=== PATIENT | female | born 1965 | race African-American/Black ===

== ENCOUNTER 2020-05-10 13:22 | Outpatient (CLI) | payer OTHER, SELFPAY ==
--- NOTE | ~2020-05-10 | MM_ITS ---
EXAMINATION: MM diagnostic davie LT w ynes HISTORY: Follow-up left breast calcifications TECHNIQUE: Additional 3-D tomosynthesis images of the left breast were performed and synthetic 2-D im ages were generated. CAD analysis was submitted and interpreted. COMPARISON: 03/17/2020 BREAST PARENCHYMAL COMPOSITION: The breasts are heterogenously dense, which may obscure small masses. FINDINGS: There is a cluster of nonspecific calcifications in the lower outer quadrant of the left br east. There is stable benign-appearing mass medially in the left breast. IMPRESSION: 1. Nonspecific clustered calcifications, lower outer quadrant. 2. Comparison to outside previous mammograms recommended. BI-RADS Category 0: Incomplete: Needs additional imaging evaluation. Reviewed, dictated and finalized at location A.
== END 2020-05-10 13:23 | disposition home or self-care (01) ==
LOC: ANHIMG 13:24
PROVIDERS: Visit Provider Internal Medicine Hematology & Oncology
DX: C50.911 Malignant neoplasm of unspecified site of right female breast (principal); Z17.1 Estrogen receptor negative status [ER-]; R92.8 Other abnormal and inconclusive findings on diagnostic imaging of breast
CPT/HCPCS: 77061; 77065; G0279

== ENCOUNTER 2020-05-18 14:19 | Outpatient (CLI) | payer OTHER, SELFPAY ==
--- NOTE | ~2020-05-18 | CT_ITS ---
EXAMINATION: CT abdomen pelvis w con DATE: 05/18/2020 15:37 INDICATION: Right breast malignancy TECHNIQUE: Computed tomography (CT) of the abdomen and pelvis was performed with 100 cc Omnipaque 350 intravenous contrast. Automated exposure control and iterative reconstruction technique were employe d. Exam dose: 409.99 mGy-cm total exam DLP. COMPARISON: None. FINDINGS: Status post right mastectomy. The lung bases are clear of infiltrate or consolidation. Normal heart size. No pericardial or pleural effusion. There are scattered fluid attenuation lesions of the liver consistent with multiple hepatic cysts, th e largest approximately 2.2 cm. The gallbladder is present. No bile duct dilatation. Spleen is normal size with occasional nonspecific small hypoenhancing areas. Normal morphology of the adrenal glands. No renal mass lesion or urinary tract calculus or hydrourete ronephrosis. Normal caliber of the abdominal aorta. No intraperitoneal or retroperitoneal or pelvic mass lesion or adenopathy or ascites. There are bilateral prominent pelvic and presacral veins. Probable calcified uterine fibroid. The uterus, adnexal areas and urinary bladder are otherwise unremarkable. There is a prominent amount of fecal material in the colon but no evidence of bowel obstruction or in traperitoneal free air. Normal appendix. There is a recent fracture of the anterior aspect of the right seventh rib. There is prominent degenerative disc disease and mild retrolisthesis at L5-S1. There are erosive roberts ges at the apophyseal joints at L4-5. IMPRESSION: Status post right mastectomy Multiple hepatic probable cysts Recent anterior right seventh rib fracture Reviewed, dictated and finalized at Location A. Reviewed, dictated and finalized at location A.
== END 2020-05-18 14:20 | disposition home or self-care (01) ==
LOC: ANHIMG 14:20
PROVIDERS: Visit Provider Internal Medicine Hematology & Oncology
DX: C50.911 Malignant neoplasm of unspecified site of right female breast (principal); K76.9 Liver disease, unspecified
CPT/HCPCS: 74177; Q9967

== ENCOUNTER → 2020-08-18 11:02 | Outpatient (CLI) | payer OTHER, SELFPAY ==
--- NOTE | ~2020-08-18 | DEXA_ITS ---
Bone Density Report Name: Yokasta Chang Age: 55 Sex: Female Ethnicity: White Date of : 1965 Indication: postmenopausal; screening for osteoporosis; prior fracture; cancer; asthma or emphysema; Referring Provider: Will Yuen Study: Bone densitometry was performed. Exam Date: August 18, 2020 Accession number: [id number] Bone Density: Region BMD T-score Z-score Classification AP Spine (L1-L4) 0.925 -1.1 0.1 Osteopenia Femoral Neck (Left) 0.864 0.1 1.3 Normal Total Hip (Left) 0.959 0.1 0.9 Normal Femoral Neck (Right) 0.745 -0.9 0.2 Normal Total Hip (Right) 0.893 -0.4 0.4 Normal Total Hip Mean 0.926 -0.2 0.7 Normal World Health Organization criteria for BMD impression classify patients as: Normal (T-score at or above -1.0), Osteopenia (T-score between -1.0 and -2.5), or Osteoporosis (T-score at or below -2.5). 10-year Fracture Risk(1): Major Osteoporotic Fracture 11% Hip Fracture 0.5% Reported Risk Factors: [place] (), Neck BMD=0.745, BMI=29.6, previous fracture (1) FRAX(R) Version 3.08. Fracture probability calculated for an untreated patient. Fracture probability may be lower if the patient has received treatment. Clinical Information Provided by Patient: Has had a low trauma fracture Has the following medical conditions: Asthma or Emphysema, Cancer Patient maximum height was 63 Menopause Age: 43 No regular weight bearing exercise Does not regularly consume dairy products Drinks caffeinated beverages Onset of menses at age 13 Number of children 1 Impression: The patient has low bone mass, based on the Total Spine T-score. The patient has an estimated ten-year risk of hip fracture of 0.5% and an estimated ten-year risk of major fracture of 11%, based on the WHO FRAX algorithm. The patient has risk factors, including: previous fracture. Discussion: BONE DENSITY IS LOW AT ONE OR MORE SKELETAL SITES. This patient's lowest T-score is low at one or more skeletal sites. It meets the World Health Organization's (WHO) criteria for ?low bone mass? (T-score between -1.0 and -2.5). The patient's 10-year risk of fracture as calculated by FRAX is less than the threshold where pharmacological therapy is recommended by the National Osteoporosis Foundation (NOF). However, all treatment decisions require clinical judgment and consideration of individual patient factors, including patient preferences, comorbidities, previous drug use, risk factors not captured in the FRAX model (e.g., frailty, falls, vitamin D deficiency, increased bone turnover, interval significant decline in bone density) and possible under or overestimation of fracture risk by FRAX. The patient should follow a healthful lifestyle (good nutrition with adequate calcium and vitamin D, and appropriate weight-bearing exercise).
== END ==
DX: M85.88 Other specified disorders of bone density and structure, other site (principal)
CPT/HCPCS: 77080

== ENCOUNTER → 2020-10-05 15:38 | Outpatient (CLI) | payer OTHER, SELFPAY ==
--- NOTE | ~2020-10-05 | US_ITS ---
EXAMINATION: US thyroid DATE: 10/05/2020 15:54 INDICATION: Goiter. Hypothyroidism. TECHNIQUE: Multiple ultrasound images of the thyroid were obtained. COMPARISON: None. FINDINGS: The right thyroid lobe measures 4.6 x 1.4 x 1.4 cm. The left thyroid lobe measures 4.1 x 1.3 x 1.1 c m. In the right thyroid lobe, there is an 11 mm solid, hypoechoic, [id number] nodule with lobul ated margin without echogenic foci (TI-RADS TR4). IMPRESSION: 1. Thyroid nodule. Thyroid ultrasound is recommended in one year. Reviewed, dictated and finalized at location A. 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
== END ==
PROVIDERS: Visit Provider Internal Medicine Endocrinology, Diabetes & Metabolism
DX: E04.1 Nontoxic single thyroid nodule (principal)
CPT/HCPCS: 76536

== ENCOUNTER 2020-10-08 07:02 | Outpatient (CLI) | payer OTHER, SELFPAY ==
[2020-10-08 08:01] LABS: Alanine Aminotransferase 31 U/L (4-35); Albumin Level 4.2 g/dL (3.5-5.1); Alkaline Phosphatase 89 U/L (38-126); Anion Gap 3 mmol/L (8-16); Aspartate Amino Transferase 50 U/L (14-36); Bilirubin,Total 0.6 mg/dL (0.2-1.3); Blood Urea Nitrogen 13 mg/dL (7-17); Calcium 9.7 mg/dL (8.4-10.2); Carbon Dioxide 32 mmol/L (22-30); Chloride 105 mmol/L (98-107); Cholesterol 151 mg/dL (0-200); Estimated Glomerular Filt Rate > 60; Glucose 84 mg/dL (65-105); HDL Direct 55 mg/dL; Potassium 4.1 mmol/L (3.4-5.0); Sodium 140 mmol/L (137-145); Triglycerides 67 mg/dL (<150)
[2020-10-08 08:12] LABS: LDL Cholesterol Direct 62 mg/dL
[2020-10-08 08:27] LABS: Free T4 Free Thyroxine 1.05 ng/mL (0.78-2.19)
[2020-10-08 09:08] LABS: Folic Acid > 20.0 ng/mL (2.76->20)
[2020-10-12 06:49] LABS: Triiodothyronine T3 Free 3.1 pg/mL (2.3-4.2)
[2020-10-13 05:13] LABS: Thyroid Peroxidase Antibodies 57 IU/mL (<9)
[2020-10-13 14:50] LABS: Thyroid Stimulating Immunoglob <89 % baseline (<140)
== END 2020-10-08 07:03 | disposition home or self-care (01) ==
PROVIDERS: Visit Provider Internal Medicine Endocrinology, Diabetes & Metabolism
DX: E03.9 Hypothyroidism, unspecified (principal); E55.9 Vitamin D deficiency, unspecified; Z13.220 Encounter for screening for lipoid disorders
CPT/HCPCS: 36415; 80053; 80061; 82306; 82607; 82746; 84439; 84443; 84445; 84481; 86376

== ENCOUNTER 2020-11-05 12:00 | Outpatient (CLI) | payer OTHER, SELFPAY ==
[2020-11-05 13:49] LABS: Thyroid Stimulating Hormone 0.295 uIU/mL (0.465-4.680)
[2020-11-05 15:16] LABS: Free T4 Free Thyroxine 1.23 ng/mL (0.78-2.19)
[2020-11-09 07:32] LABS: Triiodothyronine T3 Free 3.5 pg/mL (2.3-4.2)
== END 2020-11-05 12:01 | disposition home or self-care (01) ==
PROVIDERS: Visit Provider Internal Medicine Endocrinology, Diabetes & Metabolism
DX: E03.9 Hypothyroidism, unspecified (principal)
CPT/HCPCS: 36415; 84439; 84443; 84481

== ENCOUNTER 2021-02-24 06:56 | Outpatient (CLI) | payer OTHER, SELFPAY ==
[2021-02-24 07:46] LABS: Alanine Aminotransferase 29 U/L (4-35); Albumin Level 4.2 g/dL (3.5-5.1); Alkaline Phosphatase 90 U/L (38-126); Anion Gap 7 mmol/L (8-16); Aspartate Amino Transferase 44 U/L (14-36); Bilirubin,Total 0.7 mg/dL (0.2-1.3); Blood Urea Nitrogen 10 mg/dL (7-17); Calcium 9.7 mg/dL (8.4-10.2); Carbon Dioxide 30 mmol/L (22-30); Chloride 106 mmol/L (98-107); Estimated Glomerular Filt Rate > 60; Glucose 91 mg/dL (65-105); Potassium 4.2 mmol/L (3.4-5.0); Sodium 143 mmol/L (137-145)
[2021-02-24 08:22] LABS: Free T4 Free Thyroxine 1.28 ng/mL (0.78-2.19); Vitamin D 25 Hydroxy 58.9 ng/mL
[2021-02-24 08:29] LABS: Thyroid Stimulating Hormone < 0.015 uIU/mL (0.465-4.680)
[2021-02-27 13:30] LABS: Triiodothyronine T3 Free 3.2 pg/mL (2.3-4.2)
== END 2021-02-24 06:57 | disposition home or self-care (01) ==
PROVIDERS: Visit Provider Internal Medicine Endocrinology, Diabetes & Metabolism
DX: E03.9 Hypothyroidism, unspecified (principal); E55.9 Vitamin D deficiency, unspecified
CPT/HCPCS: 36415; 80053; 82306; 84439; 84443; 84481

== ENCOUNTER 2025-01-07 09:21 | Outpatient (CLI) | payer MEDICARE, OTHER, SELFPAY ==
--- NOTE | ~2025-01-07 | MR_ITS ---
MRI of the left knee Clinical history: Pain Technique: Coronal proton density and proton density-weighted images, sagittal proton-density and T2 fat-sat images, and axial proton-density fat-saturated images were acquired. Findings: There is mucoid degenerative change of the ACL with increased signal and thickening, but in tact fibers. Posterior cruciate ligament intact. Medial collateral ligament and the lateral collatera l ligament conflux are intact. Popliteus tendon is intact. There is horizontal tear of the posterior horn of the medial meniscus extending to the body segment. No lateral meniscal tear evident. Articular cartilage is well preserved throughout the knee. There is cystic enthesopathic change at th e roof intercondylar notch at the anterior tibial spine region. Extensor mechanism is intact. Small joint effusion present with minimal Perry's cyst. Impression: Horizontal tear of the posterior horn of the medial meniscus extending to the body segment. Mucoid degenerative change of the ACL. Small joint effusion and minimal Perry's cyst. Reviewed, dictated and finalized at location . Impression: Horizontal tear of the posterior horn of the medial meniscus extending to the b sarah segment. Mucoid degenerative change of the ACL. Small joint effusion and minimal Perry's cyst.
== END 2025-01-07 09:22 | disposition home or self-care (01) ==
PROVIDERS: PCP Nurse Practitioner Family; Visit Provider Nurse Practitioner Family
DX: S83.242A Other tear of medial meniscus, current injury, left knee, initial encounter (principal); X58.XXXA Exposure to other specified factors, initial encounter; M23.612 Other spontaneous disruption of anterior cruciate ligament of left knee; M25.462 Effusion, left knee
CPT/HCPCS: 73721

== ENCOUNTER 2025-08-19 09:24 | Outpatient (CLI) | payer MEDICARE, OTHER, SELFPAY ==
--- NOTE | ~2025-08-19 | MR_ITS ---
EXAMINATION: MR knee RT wo con DATE: 08/19/2025 09:51 INDICATION: Osteoarthritis TECHNIQUE: Magnetic resonance imaging (MRI) of the knee was performed without intravenous contrast. Sequences included axial PD-weighted FS FSE, coronal PD- weighted FSE and PD-weighted FS FSE, sagittal PD-weighted FSE, and sagittal T2- weighted FS FSE. COMPARISON: None. FINDINGS: No fracture subluxation or dislocation. No aggressive bony lesions. Moderately severe tricompartmental osteoarthritic degenerative changes including focal areas of advanced cartilaginous erosion, and subchondral cystic/edematous changes in the central portion of the lateral tibial plateau. Small joint effusion present. Horizontal tear present involving the posterior horn of the medial meniscus. Tear extends to the meniscocapsular junction image 14 series 5. The tear appears to extend to the superior surface on image 21 series 7 but there is abnormal appearance along the inferior margin of the posterior horn as well. The anterior horn appears intact. The lateral meniscus appears intact. Moderately extensive T2 weighted hyperintense signal changes present throughout the ACL, though no completely disrupted ACL tear seen. There is also mild T2- weighted hyperintense signal change in the tibial subcortical bone marrow at the intercondylar eminence. The PCL slightly thickened and the proximal portion appears otherwise intact. Collateral ligaments appear intact. Extra articular soft tissues including quadriceps and infrapatellar tendons appear normal. Small Perry's cyst incidentally noted as well. IMPRESSION: 1. Horizontal tear in the posterior horn of the the medial meniscus mildly complex in appearance. 2. Possible partial-thickness tear in the ACL. Subjacent edematous changes in the intercondylar eminence also noted may be associated with stress reaction or bone marrow edema. 3. Moderately severe osteoarthritic degenerative changes. Reviewed, dictated and finalized at location A. 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 Horizontal tear in the posterior horn of the the medial meniscus mildly comp thaddeus in appearance. 2. Possible partial-thickness tear in the ACL. Subjacent edematous changes in t he intercondylar eminence also noted may be associated with stress reaction or bone marrow edema. 3. Moderately severe osteoarthritic degenerative changes.
== END 2025-08-19 09:25 | disposition home or self-care (01) ==
LOC: MICIMG 09:25
PROVIDERS: PCP Nurse Practitioner Family; Visit Provider Nurse Practitioner Family
DX: M17.11 Unilateral primary osteoarthritis, right knee (principal); S83.241A Other tear of medial meniscus, current injury, right knee, initial encounter; X58.XXXA Exposure to other specified factors, initial encounter
CPT/HCPCS: 73721